=== PATIENT | male | born 1960 | race Caucasian/White ===

== ENCOUNTER 2021-09-17 12:12 | Emergency (ER) | payer OTHER ==
[~2021-09-17] VITALS: Ht 177.8 cm; Wt 105.0 kg
[2021-09-17 13:26] VITALS: BP 163/73
[2021-09-17] MEDS ORDERED: LIPITOR10 M1 PO (13:27)
[2021-09-17] MEDS ORDERED: NAPROXEN250 MG PO (13:27)
[2021-09-17] MEDS ORDERED: DOCUSATE CAL240 MG PO (13:27)
[2021-09-17] MEDS ORDERED: SYNTHROID175 MCG PO (13:28)
[2021-09-17] MEDS ORDERED: LEXAPRO10 MG PO (13:28)
[2021-09-17] MEDS ORDERED: KEFLEX500 MG PO (15:50)
== END 2021-09-17 16:06 | disposition home or self-care (01) | DRG 605 ==
LOC: ED 12:12
DX: S91.331A Puncture wound without foreign body, right foot, initial encounter (principal); E03.9 Hypothyroidism, unspecified; W26.8XXA Contact with other sharp object(s), not elsewhere classified, initial encounter